=== PATIENT | male | born 1940 | race Hispanic/Latino ===

== ENCOUNTER 2017-10-04 00:17 | Inpatient (IN) | payer MEDICARE, OTHER ==
[~2017-10-04] VITALS: Ht 175.3 cm; Wt 88.9 kg
[2017-10-04] VITALS (7 sets, daily range): BP systolic 101–149; BP diastolic 52–72
[~2017-10-04 00:17] MED LIST: ALBUTEROL0.63 MG/3 INH; ASPIR 8181 MG PO; BACTRIM DS TAB1 EACH PO; CLOPIDOGREL75 MG PO; CRESTOR10 MG PO; ISOSORBIDE DINI20 MG PO; LEVEMIR100 UNIT/1 SQ; LISINOPRIL2.5 MG PO; LOPERAMIDE2 MG PO; METFORMIN HCL500 MG PO; METOPROLOL TART25 MG PO; MUCINEX DM ER1 EACH PO; NOVOLOG MI100 UNIT/1 SQ
[2017-10-04 01:15] LABS: BASOPHILS % 0.3 % (0.0-1.0); EOSINOPHILS # (AUTO) 0.1 (0.0-0.4); EOSINOPHILS % 0.7 % (0.0-6.0); HEMOGLOBIN 10.4 g/dL (14.0-18.0); LYMPHOCYTES # (AUTO) 0.9 (1.0-3.2); LYMPHOCYTES % 8.1 % (18.0-39.1); MEAN CORPUSCULAR HEMOGLOBIN 30.4 pg (28-32); MEAN CORPUSCULAR HGB CONC 34.7 g/dL (31-35); MEAN CORPUSCULAR VOLUME 87.7 fL (81-99); MONOCYTES # (AUTO) 0.7 (0.2-0.8); MONOCYTES % 6.3 % (4.4-11.3); NEUTROPHILS # (AUTO) 8.7 (2.1-6.9); NEUTROPHILS % 83.7 % (38.7-80.0); PLATELET COUNT 141 x10e3/uL (140-360); RED BLOOD COUNT 3.42 x10e6/uL (4.3-5.7); RED CELL DISTRIBUTION WIDTH 13.2 % (11.7-14.4)
[2017-10-04 01:19] LABS: INR 1.09; PROTHROMBIN TIME 13.3 seconds (11.9-14.5)
[2017-10-04 01:20] LABS: PARTIAL THROMBOPLASTIN TIME 36.5 seconds (23.8-35.5)
[2017-10-04] MEDS ORDERED: MORPHINE SULFATE 2 MG/ML SYR IV STA (01:22)
[2017-10-04] MEDS ORDERED: ONDANSETRON HCL INJ 2 MG/ML VIAL IV STA (01:22)
[2017-10-04 01:29] LABS: ALBUMIN 2.6 g/dL (3.5-5.0); ALBUMIN/GLOBULIN RATIO 0.6 (0.8-2.0); CALCIUM 8.7 mg/dL (8.4-10.2); CREATININE, SERUM 2.54 mg/dL (0.72-1.25)
[2017-10-04] MEDS ORDERED: ASPIRIN 81 MG CHEW TAB PO ONE (01:30)
[2017-10-04 01:36] LABS: CREATINE KINASE MB 3.4 ng/mL (0-5.0)
[2017-10-04 01:40] LABS: B-TYPE NATRIURETIC PEPTIDE2 408.7 pg/mL (0-100)
[2017-10-04 01:57] LABS: ANION GAP 16.3 mmol/L (8-16); MAGNESIUM 1.7 MG/DL (1.3-2.1); POTASSIUM 4.3 mmol/L (3.5-5.1)
--- NOTE | 2017-10-04 02:02 | Diagnostic Imaging Report ---
EXAM: CHEST 2 VIEWS, PA and lateral INDICATION: Chest pain, cough COMPARISON: PA and lateral view of the chest and 11/17/2016 FINDINGS: LINES/TUBES: None LUNGS: New patchy opacities bilaterally predominantly in the lung bases. PLEURA: No effusions or pneumothorax. HEART AND MEDIASTINUM: Stable appearance. Stable median sternotomy wires. BONES AND SOFT TISSUES: No acute findings. IMPRESSION: New, predominantly bibasilar airspace opacities. The differential includes pulmonary edema or multifocal pneumonia. Signed by: Dr. Maricel Marcelino M.D. on 10/04/2017 1:59 AM
[2017-10-04 02:14] LABS: BILIRUBIN,URINE NEGATIVE (NEGATIVE); CLARITY,URINE CLEAR (CLEAR); COLOR,URINE YELLOW (YELLOW); KETONES,URINE NEGATIVE (NEGATIVE); LEUKOCYTE ESTERASE ,URINE NEGATIVE (NEGATIVE); NITRITE,URINE NEGATIVE (NEGATIVE); URINE UROBILINOGEN 0.2 mg/dL (0.2 - 1)
[2017-10-04] MEDS ORDERED: IPRATROPIUM BROMIDE 0.02% 2.5 ML NEB NEB ONE (02:15)
[2017-10-04] MEDS ORDERED: LEVALBUTEROL HCL SOLN NEBU 0.63 MG/3 ML NEB INH ONE (02:15)
[2017-10-04 02:16] LABS: PROTEIN,URINE DIPSTICK 2+ (NEGATIVE)
[2017-10-04 02:21] LABS: BACTERIA,URINE RARE /HPF
[2017-10-04 02:22] LABS: EPITHELIAL CELLS,URINE RARE /LPF; HYALINE CASTS 0-1 (0-1)
[2017-10-04] MEDS ORDERED: ISOSORBIDE MONO20 MG PO (02:44)
[2017-10-04] MEDS ORDERED: NOVOLOG MI100 UNIT/1 SQ (02:44)
[2017-10-04] MEDS ORDERED: CARVEDILOL12.5 MG PO (02:44)
[2017-10-04] MEDS ORDERED: LEVEMIR100 UNIT/1 SQ (02:44)
[2017-10-04] MEDS ORDERED: LASIX20 MG PO (02:44)
[2017-10-04] MEDS ORDERED: FUROSEMIDE INJ 10 MG/ML 4 ML VIAL IV ONE (02:45)
[2017-10-04] MEDS ORDERED: INSULIN REGULAR, HUMAN 100 UNIT/1 ML 3ML VIAL SQ ONE (02:45)
[2017-10-04] MEDS ORDERED: CEFTRIAXONE SOD 1 GM VIAL IV SCH (03:00)
[2017-10-04 03:11] LABS: ABG HCO3 23 mmol/L (23-28); ABG PCO2 38 mmHg (41-51); ABG PO2 62 mmHg (80-105)
[2017-10-04] MEDS: AZITHROMYCIN 500MG/NS 250 ML 250 ML IV SCH ×2 (03:20→09:10)
[2017-10-04] MEDS ORDERED: MORPHINE SULFATE 2 MG/ML SYR IV PRN (03:45)
[2017-10-04] MEDS ORDERED: DEXTROSE 50% SYRINGE 50 ML IV PRN (03:45)
[2017-10-04] MEDS ORDERED: NITROGLYCERIN 0.4 MG SUBL SL PRN (03:45)
[2017-10-04] MEDS ORDERED: ONDANSETRON HCL INJ 2 MG/ML VIAL IV PRN ×2 (03:45→12:00)
--- OUTSIDE RECORDS SUMMARY | 2017-10-04 03:53 | XMS REPORT ---
Author Author [facility] Address Unknown Phone Unavailable Care Team Providers Care Engineering Production Liaison Name Role Phone HOLLAND VILLEGAS Unavailable Unavailable Problems This patient has no known problems. Allergies, Adverse Reactions, Alerts This patient has no known allergies or adverse reactions. Medications This patient has no known medications. Results Test Description Test Time Test Comments Text Results Atomic Results Result Comments CHEST [address] [address] Patient Name: EDDIE CERVANTES JR MR #: [id number] : 1940 Age/Sex: 77/M Req # : [id number] Adm Physician: Ordered by: HOLLAND VILLEGAS MD Report #: [id number] Location: ER Room/Bed: Procedure: [id number] DX/CHEST 2 VIEWS Exam Date: 10/04/17 Exam Time: 0135 REPORT STATUS: Signed EXAM: CHEST 2 VIEWS, PA and lateral INDICATION: Chest pain, cough COMPARISON: PA and lateral view of the chest and 11/17/2016 FINDINGS: LINES/TUBES: None LUNGS: New patchy opacities bilaterally predominantly in the lung bases. PLEURA: No effusions or pneumothorax. HEART AND MEDIASTINUM: Stable appearance. Stable median sternotomy wires. BONES AND SOFT TISSUES: No acute findings. IMPRESSION: New, predominantly bibasilar airspace opacities. The differential includes pulmonary edema or multifocal pneumonia. Signed by: Dr. Mel Elizalde M.D. on 10/04/2017 1:59 AM Dictated By: MEL ELIZALDE MD 8 Transcribed By: MARYANNE on 10/04/17158 COPY TO: HOLLAND VILLEGAS MD
[2017-10-04] MEDS ORDERED: IPRATROPIUM BROMIDE 0.02% 2.5 ML NEB NEB PRN (06:00)
[2017-10-04] MEDS ORDERED: LEVALBUTEROL HCL SOLN NEBU 0.63 MG/3 ML NEB INH PRN (06:00)
[2017-10-04] MEDS ORDERED: FAMOTIDINE 20 MG/2 ML VIAL IV SCH (09:00)
[2017-10-04] MEDS: ASPIRIN 325 MG TAB EC PO SCH (09:10)
[2017-10-04] MEDS: INSULIN REGULAR, HUMAN 100 UNIT/1 ML 3ML VIAL SQ SCH ×4 (09:10→20:40)
[2017-10-04 10:40] LABS: CREATINE KINASE MB 28.9 ng/mL (0-5.0)
[2017-10-04] MEDS: METOPROLOL TARTRATE 25 MG TAB PO SCH ×2 (11:43→17:00)
[2017-10-04] MEDS: INSULIN DETEMIR 100 UNIT/ML PEN SQ SCH (12:10)
[2017-10-04] MEDS ORDERED: HEPARIN 25,000U/0.45% NS 250ML 900 UNIT in SODIUM CHLORIDE 0.9% 250ML 0 ML IV SCH (13:45)
[2017-10-04] MEDS ORDERED: HEPARIN SOD (PORCINE) 5,000 UNIT/ML VIAL IV NR (13:45)
[2017-10-04] MEDS: HEPARIN 25,000U/0.45% NS 250ML 250 ML IV SCH (16:24)
[2017-10-04 18:27] LABS: CREATINE KINASE MB 25.8 ng/mL (0-5.0)
--- NOTE | 2017-10-04 18:28 | Consultation ---
DATE OF CONSULTATION: October 04, 2017 CARDIOLOGY CONSULTATION REFERRING PHYSICIAN: Dr. Janina Tran. REASON FOR CONSULTATION: Myocardial infarction. HISTORY OF PRESENT ILLNESS: Mr. Ortiz is a pleasant 77-year-old man with history of diabetes mellitus, single kidney, hypertension, hyperlipidemia, CKD, and coronary artery disease with prior aortocoronary bypass 11 years ago who presents to [facility] following 3 days with runny nose, cough, myalgias, and fatigue followed by sudden onset chest pressure while going to sleep last night. Pressure felt like somebody was sitting on his chest. It was constant and lasted a couple of hours. No radiation. No associated complaints. Currently symptom free. He described recent coronary angiogram done at the [place]. At that time, he was told he had small vessel residual disease, which was best managed medically. He states that at that time, he was told that he had issues with this residual kidney function and risk of contrast-associated nephropathy was elevated. REVIEW OF SYSTEMS: The 12-system review, negative except for as noted above. ALLERGIES: STATINS, NIACIN, SIMVASTATIN, AND ATORVASTATIN. PAST MEDICAL HISTORY: As per HPI. SOCIAL HISTORY: Former smoker, quit in 1964. Rare alcohol use. No drug use. FAMILY HISTORY: Significant for diabetes and hypertension. PHYSICAL EXAMINATION VITAL SIGNS: Temperature 99.9, heart rate 72, respiratory rate 18, blood pressure 150/55, and O2 sat 100% on 2 liter per minute nasal cannula. GENERAL: No acute distress. Alert. NECK: JVD elevated to lower 3rd of neck at 30 degrees head of bed elevation. CHEST: Decreased breath sounds in bilateral bases. CARDIOVASCULAR: Regular rate and rhythm. Normal S1 and S2. Systolic ejection murmur 1/6. ABDOMEN: Soft and nontender. EXTREMITIES: No edema. Warm distal extremities. CARDIOVASCULAR MEDICATIONS: Metoprolol titrate 25 mg b.i.d., aspirin 325 mg daily, heparin 5000 units subcu q.12 hours, and nitroglycerin p.r.n. LAB WORK: White blood cells 10.4, hemoglobin 10.4, and platelets 141. INR 1.09. PTT 36.5. Initial glucose was 629, down now to 275. His sodium was 136, potassium 4.3, chloride 102, bicarbonate 22, BUN 33, creatinine 2.5, calcium 8.7, and magnesium 1.7. Total bilirubin 0.7, AST 17, ALT 16, and alk phos 109. CK 170, then 324; CK-MB 3.4, then 28.9; troponin-I 0.034, then 9.8. BNP is 408. Total protein 7 and albumin 2.6. UA is significant for specific gravity 1.010, pH 6, blood 3+, rbc's 6 to 10, white blood cells 11 to 20, and rare bacteria. Blood cultures sent. Chest x-ray with new predominantly bibasilar airspace opacities; differential including pulmonary edema and multifocal pneumonia; stable appearance of heart and mediastinum with stable median sternotomy wires. EKG with sinus rhythm and bifascicular block, mainly left ventricular and right bundle branch block. ASSESSMENT 1. Non-ST elevated myocardial infarction. 2. Coronary artery disease with history of aortocoronary bypass, remote and recent cardiac catheterization at the [place]. 3. Diabetes mellitus. 4. Hyperlipidemia. 5. Labile blood pressure with some reads in the high 80s, systolic in the 150s. 6. Anemia. 7. Renal failure, chronic, with possible acute component. 8. Uncontrolled hyperglycemia. 9. Systolic heart failure, yjqzg-kk-mhpaire. 10. Abnormal urinalysis concerning for urinary tract infection. 11. Differential diagnosis includes pulmonary edema and less likely pneumonia given upper respiratory symptoms. Proceeding in my presentation, differential of pneumonia is consideration. RECOMMENDATIONS 1. Initiate IV heparin. 2. Continue aspirin , beta hal with holding parameters, calculating his risk of contrast-induced nephropathy based on risk calculator by Dr. Giordano, Journal of the [place] [employer] 2004. Assuming blood pressure remains stable and there is no acute component of renal failure, contrast-induced nephropathy risk using less than 100 mL of dye will be 26% and between 100 mL and 200 mL of dye will be 57%. Risk of dialysis would range from less than 100 mL of dye at 1.09% and using between 100 mL and 200 mL will increase to 12.6%. Discussion about risk of contrast-induced nephropathy initiated as well as cardiac catheterization and possible angiography intervention. Discussed with the patient. We will continue initial medical therapy and decide over course of the next several days whether to pursue an invasive strategy or conservative medical therapy strategy instead. 3. Monitor renal function, request recent records, particularly cardiac catheterization done at the [place]. Suggest renal consultation and diabetes optimization. We will clarify further statin intolerance, can consider PCSK9 inhibitor as outpatient once highest potency statin tolerated confirmed. Job#: [id number] VAS
[2017-10-04] MEDS ORDERED: HEPARIN SOD (PORCINE) 5,000 UNIT/ML VIAL SC SCH (21:00)
[2017-10-05] VITALS (7 sets, daily range): BP systolic 121–157; BP diastolic 42–72
[2017-10-05 06:45] LABS: BASOPHILS # (AUTO) 0.1 (0.0-0.1); BASOPHILS % 0.5 % (0.0-1.0); EOSINOPHILS # (AUTO) 0.2 (0.0-0.4); EOSINOPHILS % 1.5 % (0.0-6.0); HEMATOCRIT 30.4 % (38.2-49.6); HEMOGLOBIN 10.2 g/dL (14.0-18.0); LYMPHOCYTES # (AUTO) 1.8 (1.0-3.2); LYMPHOCYTES % 15.3 % (18.0-39.1); MEAN CORPUSCULAR HEMOGLOBIN 29.9 pg (28-32); MEAN CORPUSCULAR HGB CONC 33.6 g/dL (31-35); MEAN CORPUSCULAR VOLUME 89.1 fL (81-99); MONOCYTES # (AUTO) 0.6 (0.2-0.8); MONOCYTES % 4.7 % (4.4-11.3); NEUTROPHILS % 77.1 % (38.7-80.0); PLATELET COUNT 148 x10e3/uL (140-360); RED BLOOD COUNT 3.41 x10e6/uL (4.3-5.7); RED CELL DISTRIBUTION WIDTH 13.2 % (11.7-14.4)
--- NOTE | 2017-10-05 06:54 | Diagnostic Imaging Report ---
EXAM: CHEST SINGLE (PORTABLE), AP 1 view INDICATION: Chest pain COMPARISON: PA and lateral view of the chest October 04, 2017 FINDINGS: LINES/TUBES: None LUNGS: Slight improved aeration of the lung bases. PLEURA: No effusions or pneumothorax. HEART AND MEDIASTINUM: Stable appearance. BONES AND SOFT TISSUES: No acute findings. IMPRESSION: Slight improved aeration of the lung bases. Signed by: Dr. Maricel Marcelino M.D. on 10/05/2017 6:50 AM
[2017-10-05 07:14] LABS: ALBUMIN 2.4 g/dL (3.5-5.0); ALBUMIN/GLOBULIN RATIO 0.5 (0.8-2.0); ANION GAP 11.3 mmol/L (8-16); CALCIUM 8.9 mg/dL (8.4-10.2); CHOL/HDL RATIO 3.6 (3.9-4.7); CREATININE, SERUM 2.3 mg/dL (0.72-1.25); POTASSIUM 3.3 mmol/L (3.5-5.1)
[2017-10-05] MEDS: INSULIN REGULAR, HUMAN 100 UNIT/1 ML 3ML VIAL SQ SCH ×4 (07:36→21:00)
[2017-10-05] MEDS: INSULIN DETEMIR 100 UNIT/ML PEN SQ SCH (08:01)
[2017-10-05] MEDS: ASPIRIN 325 MG TAB EC PO SCH (08:09)
[2017-10-05] MEDS: METOPROLOL TARTRATE 25 MG TAB PO SCH ×2 (08:10→16:58)
[2017-10-05] MEDS ORDERED: POTASSIUM CHLORIDE 10 MEQ TABCR PO ONE (08:50)
--- NOTE | 2017-10-05 11:25 | Progress Note ---
DATE: October 05, 2017 CARDIOLOGY PROGRESS NOTE SUBJECTIVE: Patient denies chest pain or shortness of breath. OBJECTIVE: VITAL SIGNS: Temperature 99.8 degrees, pulse 76, respiratory rate 20, blood pressure 157/72, oxygen saturation 100% on 2 liters nasal cannula. GENERAL: Well-developed, well-nourished male, awake and alert, in no acute distress. LUNGS: Decreased breath sounds bilateral bases. No wheezes or crackles. CARDIOVASCULAR: Normal rate, regular rhythm. Systolic murmur 1/6. Normal S1 and S2. ABDOMEN: Soft and nontender. EXTREMITIES: No edema. CARDIAC MEDICATIONS 1. Metoprolol titrate 25 mg p.o. b.i.d. 2. Aspirin 325 mg p.o. q.a.m. 3. Heparin drip. LABS: Sodium 131, potassium 3.3, chloride 98, CO2 of 25, BUN 34, creatinine 2.3. Troponin 13.159. WBC 11.64, hemoglobin 10.2, hematocrit 30.4, platelets 148. TELEMETRY: Normal sinus rhythm. IMPRESSION 1. Non-ST elevation myocardial infarction. 2. Bibasilar airspace opacities on chest x-ray. 3. Coronary artery disease with history of coronary artery bypass grafting remote with recent cardiac catheterization at the [place] in July 2017. 4. Diabetes mellitus. 5. Hyperlipidemia. 6. Hypertension. 7. Chronic renal failure with possible component of acute kidney injury. 8. Anemia. 9. Vltvv-an-jiuaocn systolic heart failure. 10. Abnormal urinalysis concerning for urinary tract infection. RECOMMENDATIONS 1. Continue medical management with intravenous heparin drip. 2. Continue aspirin as well as beta-hal. Patient has reported history of statin intolerance. We will clarify his side effects. If he is unable to tolerate, he can consider PCSK9 inhibitor injection as an outpatient. We are awaiting recent cardiac catheterization report from the [place]. Renal consultation is noted. Await their evaluation regarding his risk of contrast-induced nephropathy. Continue medical therapy for now. Hold off diuretics as patient may possibly go for cardiac catheterization. Continue current cardiac medications. Thank you for this consult. We will continue to follow. Job#: [id number] YOBANI
[2017-10-05] MEDS: HEPARIN 25,000U/0.45% NS 250ML 250 ML IV SCH (13:44)
[2017-10-05] MEDS ORDERED: BENZONATATE 100 MG CAP PO PRN (14:00)
--- NOTE | 2017-10-05 15:49 | Consultation ---
DATE OF CONSULTATION: October 05, 2017 NEPHROLOGY CONSULT NOTE REASON FOR CONSULTATION: CKD with single kidney. REASON FOR ADMISSION: NSTEMI, flu-like symptoms. HISTORY OF PRESENTING ILLNESS: Mr. Ortiz is a 77-year-old male with a past medical history significant for CAD, status post bypass surgery, hypertension, diabetes, hyperlipidemia, and chronic kidney disease likely stage 4. 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 He states he feels better today; however, on admission, it was noted that his troponin was 13 and his creatinine was 2.5. Cardiology has been consulted and requested a nephrology consultation as his risk of contrast-induced nephropathy is high. Patient is aware of contrast-induced nephropathy. He underwent a left heart cath in September, where he was told his vessels were not amenable to stenting and was told he does have medical coronary artery disease and was just started on medical management for the same. He states his heart function is 35%. He does have a history of heart failure and takes Lasix 20 mg a day. He states his kidney function started deteriorating about 2 years ago, but according to chart review here, we have creatinine available from August of 2016, which is 2.25, which is likely his baseline. Yesterday, his creatinine was 2.5 and today, it is corrected to 2.18, which is likely around his baseline as well. We have been consulted to assist with management of possible contrast-induced nephropathy and CKD. Patient at this time states he denies any complaints, feels better. Denies any shortness of breath, is on oxygen currently, but does not have any significant reduction in his physical activity at home. He is already aware of contrast-induced nephropathy. He has had a right nephrectomy, unsure as to the exact cause. He states he had trauma and then was told he had a cyst and there was concern for cancer and it was taken out. 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 PAST SURGICAL HISTORY: CABG and right nephrectomy. FAMILY HISTORY: Noncontributory. SOCIAL HISTORY: He was a former smoker. No alcohol or drug use. ALLERGIES: STATINS AND NIACIN. MEDICATIONS: Reviewed in electronic medical record. REVIEW OF SYSTEMS: A 12-point review of systems performed, pertinent positives as per HPI. PHYSICAL EXAMINATION VITAL SIGNS: Temperature 97.8, pulse rate 74, blood pressure 117/60, respiratory rate 20, and saturating 96%. GENERAL: Resting comfortably in bed with nasal cannula. HEENT: Normocephalic, atraumatic. Moist mucous membranes. CARDIOVASCULAR: Regular rate and rhythm. RESPIRATORY: Has decreased bilateral breath sounds. No crackles appreciated. GASTROINTESTINAL: Abdomen soft and nontender. MUSCULOSKELETAL: Has no lower extremity edema. GENITOURINARY: No Chao present. NEUROLOGICAL: No asterixis appreciated. LABORATORY DATA: Sodium 131, potassium 3.3, chloride 98, bicarbonate 25, BUN 34, creatinine 2.3. WBC count 11.6, hemoglobin 10.2, and platelet count 148. UA with 2+ protein, 3+ blood, 11-20 wbc's. Influenza A and B negative. Cultures blood and urine, no growth to date. IMAGING: Reviewed. Chest x-ray, slight improved aeration of the lung bases. Chest x-ray from yesterday showed predominantly bibasilar airspace opacities. IMPRESSION AND PLAN 1. Acute kidney injury likely on top of chronic kidney disease stage 4 with a solitary left kidney. At this time, patient is very high risk for contrast-induced nephropathy given solitary kidney despite contrast-induced nephropathy risk calculator showing that if less than 100 mL of contrast is used, he is at risk of 1% of needing dialysis and 26% of contrast-induced nephropathy, but if more than that is used, his risk factors increase exponentially and his risk of needing dialysis goes up to 12% and his risk of ending up with contrast-induced nephropathy is about 57%. Discussed the same with patient and discussed dialysis needs as well if needed. Patient understands the risks at this time; however, we are waiting for records from [place] to see if the patient really does need a coronary angiogram as he was told in September that his veins are not amenable to stenting. We will defer decision medical necessity of cardiac catheterization to cardiology. If it is decided that he needs a cardiac catheterization, we will recommend holding off diuresis at this time and keep patient relatively volume-expanded, may even need gentle fluids pre- and postprocedure and Mucomyst as well. Depending on decision per cardiology, we will place those orders. 2. Hypertension. Blood pressure controlled. Continue with current meds. 3. Non-ST segment myocardial infarction, as per cardiology. 4. Diabetes, per primary care. 5. Hyponatremia and hypokalemia. We will replace potassium. Monitor his sodium. Finally, thank you very much Dr. Tran for this consult. I will be very happy to follow this patient with you. Job#: [id number] DOMENIC HARRINGTON
[2017-10-05] MEDS: ACETAMINOPHEN 325 MG TAB PO PRN (22:52)
[2017-10-06] VITALS (7 sets, daily range): BP systolic 134–156; BP diastolic 57–78
[2017-10-06 06:48] LABS: BASOPHILS # (AUTO) 0.1 (0.0-0.1); BASOPHILS % 0.5 % (0.0-1.0); EOSINOPHILS # (AUTO) 0.2 (0.0-0.4); EOSINOPHILS % 1.8 % (0.0-6.0); HEMATOCRIT 26.9 % (38.2-49.6); HEMOGLOBIN 9.2 g/dL (14.0-18.0); LYMPHOCYTES # (AUTO) 1.9 (1.0-3.2); MEAN CORPUSCULAR HEMOGLOBIN 30.2 pg (28-32); MEAN CORPUSCULAR HGB CONC 34.2 g/dL (31-35); MEAN CORPUSCULAR VOLUME 88.2 fL (81-99); MONOCYTES # (AUTO) 0.7 (0.2-0.8); MONOCYTES % 6.7 % (4.4-11.3); PLATELET COUNT 146 x10e3/uL (140-360); RED BLOOD COUNT 3.05 x10e6/uL (4.3-5.7); RED CELL DISTRIBUTION WIDTH 13.2 % (11.7-14.4)
[2017-10-06 07:15] LABS: ANION GAP 12.9 mmol/L (8-16); CALCIUM 8.6 mg/dL (8.4-10.2); CREATININE, SERUM 2.25 mg/dL (0.72-1.25); MAGNESIUM 1.6 MG/DL (1.3-2.1); POTASSIUM 3.9 mmol/L (3.5-5.1)
[2017-10-06] MEDS: INSULIN REGULAR, HUMAN 100 UNIT/1 ML 3ML VIAL SQ SCH ×4 (07:30→20:13)
[2017-10-06] MEDS: ACETAMINOPHEN 325 MG TAB PO PRN (09:00)
[2017-10-06] MEDS: ASPIRIN 325 MG TAB EC PO SCH (09:16)
[2017-10-06] MEDS: METOPROLOL TARTRATE 25 MG TAB PO SCH ×2 (09:16→18:00)
[2017-10-06] MEDS: INSULIN DETEMIR 100 UNIT/ML PEN SQ SCH (09:21)
[2017-10-06] MEDS: CEFTRIAXONE SOD 1 GM VIAL IV SCH (12:15)
[2017-10-06] MEDS: AZITHROMYCIN 250 MG TAB PO SCH (12:15)
[2017-10-06] MEDS: HEPARIN 25,000U/0.45% NS 250ML 250 ML IV SCH (15:30)
--- NOTE | 2017-10-06 16:47 | Progress Note ---
DATE: October 06, 2017 CARDIOLOGY PROGRESS NOTE SUBJECTIVE: Patient denies chest pain or shortness of breath. He is complaining of cough. OBJECTIVE VITAL SIGNS: Temperature 100.2 degrees, pulse 78, respiratory rate 17, blood pressure 156/68, oxygen saturation 100% on 1.5 L nasal cannula. GENERAL: Awake, alert, in no acute distress. LUNGS: Decreased breath sounds at bilateral bases. No wheezes or crackles. CARDIOVASCULAR: Normal rate, regular rhythm. Systolic murmur, 1/6. Normal S1 and S2. ABDOMEN: Soft and nontender. EXTREMITIES: No edema. CARDIAC MEDICATIONS 1. Metoprolol titrate 25 mg p.o. b.i.d. 2. Aspirin 325 mg p.o. q.a.m. LABS: WBC 10.9, hemoglobin 9.2, hematocrit 26.9, platelets 146. Sodium 140, potassium 3.9, chloride 106, CO2 25, BUN 35, creatinine 2.25. TELEMETRY: Normal sinus rhythm. IMPRESSION 1. Yzr-XY-myeizhtqz myocardial infarction. 2. Bibasilar airspace opacities on chest x-ray. 3. Coronary artery disease with history of coronary artery bypass grafting remote with recent cardiac catheterization at the [place] in July 2017. 4. Diabetes mellitus. 5. Hyperlipidemia. 6. Hypertension. 7. Chronic renal failure with possible component of acute kidney injury. 8. Anemia. 9. Mkutq-tn-ffbfqpj systolic heart failure. 10. Abnormal urinalysis concerning for urinary tract infection. RECOMMENDATIONS 1. Continue medical management including intravenous heparin drip. 2. Continue aspirin and beta blockade. He has had a reported history of statin intolerance. If he is unable to tolerate, he can consider PCSK9 inhibitor initiation as an outpatient. We have requested the cardiac catheterization report from the [place]. However, we have not been successful. Plan for cardiac catheterization tomorrow. Nephrology indicates the patient is at high risk for contrast-induced nephropathy. The patient understands this risk and understands his risk of dialysis and is agreeable to proceeding. No diuretics for now as we plan to proceed to cardiac catheterization. Thank you for this consult. We will continue to follow. Job#: [id number]
[2017-10-06] MEDS: ACETYLCYSTEINE 200 MG/1 ML 10ML VIAL PO SCH (18:00)
[2017-10-07 04:07] VITALS: BP 132/69
[2017-10-07 06:19] LABS: BASOPHILS % 0.5 % (0.0-1.0); EOSINOPHILS # (AUTO) 0.2 (0.0-0.4); EOSINOPHILS % 2.4 % (0.0-6.0); HEMATOCRIT 26.7 % (38.2-49.6); HEMOGLOBIN 8.9 g/dL (14.0-18.0); LYMPHOCYTES # (AUTO) 1.9 (1.0-3.2); LYMPHOCYTES % 22.7 % (18.0-39.1); MEAN CORPUSCULAR HEMOGLOBIN 29.5 pg (28-32); MEAN CORPUSCULAR HGB CONC 33.3 g/dL (31-35); MEAN CORPUSCULAR VOLUME 88.4 fL (81-99); MONOCYTES # (AUTO) 0.6 (0.2-0.8); MONOCYTES % 7.3 % (4.4-11.3); NEUTROPHILS # (AUTO) 5.6 (2.1-6.9); NEUTROPHILS % 66.3 % (38.7-80.0); PLATELET COUNT 155 x10e3/uL (140-360); RED BLOOD COUNT 3.02 x10e6/uL (4.3-5.7); RED CELL DISTRIBUTION WIDTH 13.1 % (11.7-14.4)
[2017-10-07 06:39] LABS: CALCIUM 8.8 mg/dL (8.4-10.2); CREATININE, SERUM 2.14 mg/dL (0.72-1.25); MAGNESIUM 1.8 MG/DL (1.3-2.1); PHOSPHORUS 2.7 MG/DL (2.3-4.7)
[2017-10-07] MEDS: INSULIN REGULAR, HUMAN 100 UNIT/1 ML 3ML VIAL SQ SCH ×4 (07:30→21:09)
[2017-10-07 08:05] VITALS: BP 140/72
[2017-10-07] MEDS: ACETYLCYSTEINE 200 MG/1 ML 10ML VIAL PO SCH ×3 (09:00→19:11)
[2017-10-07] MEDS: METOPROLOL TARTRATE 25 MG TAB PO SCH ×3 (09:00→19:20)
[2017-10-07] MEDS: INSULIN DETEMIR 100 UNIT/ML PEN SQ SCH (09:00)
--- NOTE | 2017-10-07 09:24 | Progress Note ---
DATE: October 07, 2017 CARDIOLOGY PROGRESS NOTE SUBJECTIVE: Patient denies chest pain or shortness of breath. He is n.p.o. for cardiac catheterization today. OBJECTIVE VITAL SIGNS: Temperature 99.5 degrees, pulse 74, respiratory rate 20, blood pressure 132/69, oxygen saturation 98% on room air. GENERAL: Awake, alert, in no acute distress. LUNGS: Decreased breath sounds at bilateral bases and crackles, no wheezes. CARDIOVASCULAR: Normal rate, regular rhythm. Systolic murmur, 1/6. Normal S1 and S2. ABDOMEN: Soft and nontender. EXTREMITIES: No edema. CARDIAC MEDICATIONS 1. Metoprolol titrate 25 mg p.o. b.i.d. 2. Aspirin 325 mg p.o. q.a.m. 3. Heparin drip. LABS: WBC 8.4, hemoglobin 8.9, hematocrit 26.7, platelets 155. Sodium 138, potassium 4, chloride 105, CO2 24, BUN 33, creatinine 2.14. TELEMETRY: Normal sinus rhythm. IMPRESSION 1. Mhd-ZG-nzsvddgvs myocardial infarction. 2. Bibasilar airspace opacities on chest x-ray. 3. Coronary artery disease with history of coronary artery bypass grafting remote with recent cardiac catheterization at the [place] in July 2017. 4. Diabetes mellitus. 5. Hyperlipidemia. 6. Hypertension. 7. Chronic renal failure with component of acute kidney injury. 8. Anemia. 9. Yuhak-rn-xxbzyug systolic heart failure. 10. Abnormal urinalysis concerning for urinary tract infection. RECOMMENDATIONS 1. Continue medical management including intravenous heparin drip. 2. Continue aspirin and beta hal. The patient has reported a history of statin intolerance. If he is unable to tolerate any significant doses of statin, he can consider PCSK9 inhibitor as an outpatient. We have requested report of the patient's recent cardiac catheterization from the [place]. However, this has still not arrived. Plan for cardiac catheterization this afternoon. Patient understands that he is at increased risk for contrast-induced nephropathy, and he is agreeable to proceed. Hold any diuretics as plan for contrast administration. Continue current cardiac medications otherwise. Thank you for this consult. We will continue to follow. Job#: [id number]
[2017-10-07] MEDS: CEFTRIAXONE SOD 1 GM VIAL IV SCH (12:14)
[2017-10-07 12:33] VITALS: BP 151/70
[2017-10-07] MEDS ORDERED: SODIUM CHLORIDE 0.9% 1000ML 1,000 ML IV ONE (14:00)
[2017-10-07] MEDS ORDERED: HEPARIN SOD (PORCINE) 1000 UNIT/ML 30ML ONE (16:21)
[2017-10-07] MEDS ORDERED: MIDAZOLAM HCL 2 MG/2 ML VIAL ONE (16:22)
[2017-10-07] MEDS ORDERED: HEPARIN SOD/SOD CHLORIDE 2,000 ML ONE (16:22)
[2017-10-07] MEDS ORDERED: VERAPAMIL HCL 2.5 MG/ML 2 ML VIAL ONE (16:22)
[2017-10-07] MEDS ORDERED: LIDOCAINE HCL 2% LOCAL 20 ML VIAL ONE ×2 (16:22→16:27)
[2017-10-07] MEDS ORDERED: FENTANYL CITRATE/PF 100MCG/2 ML INJ ONE (16:22)
[2017-10-07] MEDS ORDERED: SODIUM CHLORIDE 0.9% 1000ML 1,000 ML ONE (16:23)
[2017-10-07] MEDS ORDERED: IOPAMIDOL 370 MG/ML 200 ML INFUS..BTL INJ ONE (16:23)
[2017-10-07] MEDS ORDERED: NITROGLYCERIN/D5W 200 MCG/ML 0 ML ONE (16:23)
[2017-10-07 18:15] VITALS: BP 174/72
[2017-10-07] MEDS: AZITHROMYCIN 250 MG TAB PO SCH (19:04)
[2017-10-07] MEDS: ASPIRIN 325 MG TAB EC PO SCH (19:04)
--- NOTE | 2017-10-07 20:16 | Operative Report ---
DATE OF PROCEDURE: October 07, 2017 PROCEDURE INDICATION: Non-ST elevation myocardial infarction in a patient with history of coronary artery disease and remote aortocoronary bypass and prior stents. Advanced kidney disease, high risk for contrast-induced nephropathy. Of note, indications, alternatives, risks and benefits extensively discussed with the patient including medical conservative therapy with no invasive assessment versus invasive assessment. Risks for contrast-induced nephropathy, needs for dialysis, worsening kidney function, increased mortality and morbidity and other risks were discussed. The patient voiced understanding and agreed to proceed with study. This is limited dye-protocol angiogram. PROCEDURES PERFORMED 1. Left heart catheterization. 2. Selective coronary angiography x2. 3. Selective CABELLO to LAD angiography. 4. Interrogation of aortic arch for additional patent grafts performed with a JR4 and AL1 and multipurpose catheter. 5. Right common femoral artery 6-Gu[place]ian Angio-Seal closure. PROCEDURE COMPLICATIONS: None. ESTIMATED BLOOD LOSS: Less than 15 mL. PROCEDURE SUMMARY: After consent was obtained, the patient was prepped and draped in a sterile fashion. The right femoral site was locally infiltrated with 2% lidocaine. Access was obtained with micropuncture kit. A short 6-Guamanian sheath was placed. All catheters were railed with leading wire to the respective positions. A 6-Guamanian JL4 was used for engagement of left main. A 6-[place]ian JR4 for engagement of right coronary artery in addition to multipurpose and an AL1 were used for additional interrogation of the ascending aorta for other grafts. No additional patent grafts were observed other than the CABELLO to LAD, which was patent and engaged with JR4 catheter. The aortic valve was for hemodynamic measurements with the JR4 with the following findings noted: 1. LV pressure was 127/2 with end-diastolic pressure of 11-12. 2. Aortic pressure was 125/70. 3. Left main had 20% diffuse stenosis. It is large in caliber. It gives LAD and circumflex. 4. LAD has moderate calcifications. It has bifurcation stent with 30% stenosis prior to giving the first diagonal. The first diagonal in the proximal osteal portion is stented with 50% in-stent restenosis. Distal to the stent there is diffuse 70% to 90% disease of a small caliber 1.5 to 1.75 mm diameter diagonal. Distal to the diagonal the LAD is 100% occluded. This is restenosis 100% occlusion. The LAD, however, fills the patent CABELLO to LAD. The distal LAD is severely, diffusely diseased 70% throughout. 5. The circumflex is patent with 50% mid stenosis in between the 1st and the 2nd obtuse marginal. Overall, obtuse marginal and left posterolateral branches are small in caliber. The 1st posterolateral branch has 99% stenosis. It is 1 mm in caliber and the 2nd posterolateral branch has 99% stenosis. It is small in caliber also, 1 mm, and with SHASTA II flow. 6. The right coronary artery is a dominant vessel. It has stents in the mid to distal portion. Prior to the stents, the RCA has 50% local stenosis. The stent itself has a 40% in-stent restenosis. Distal to the stent, there is 30% focal stenosis and 40% stenosis all in tandem. The RPDA and RPLV are overall small in caliber with areas of 95% and 99% stenosis throughout. Predominantly diffuse disease. 7. CABELLO to LAD is patent with no significant gradient across pullback in the subclavian artery. 8. No left ventriculogram was performed. CONCLUSION: Severe predominantly small caliber distal vessel and diffuse disease, multivessel, with patent CABELLO to left anterior descending, otherwise closed grafts 100% in-stent restenosis of left anterior descending following diagonal. Severe disease effecting diagonal, obtuse marginal and left posterior lateral branches and right posterior descending artery and right posterior left ventricular. Patent stents with moderate in-stent restenosis of the right coronary artery. RECOMMENDATIONS: No endovascular intervention is advised. This is outflow small caliber vessel, diffuse multivessel disease coronary arteries. Recommend reconsider challenging with alternative statins, which the patient has attempted before. Given his reported statin intolerance, further clarify what side effects he has had before with this, and if considered clinically indicated attempt re-challenging. Consider PCS canine inhibitor therapy. As outpatient, optimize antianginal medical therapy. Monitor for contrast-induced nephropathy. Overall, guarded prognosis. Job#: [id number]
[2017-10-07 22:44] VITALS: BP 156/69
[2017-10-08 00:05] VITALS: BP 139/66
[2017-10-08 05:40] VITALS: BP 139/66
[2017-10-08 07:10] LABS: BASOPHILS % 0.5 % (0.0-1.0); EOSINOPHILS # (AUTO) 0.2 (0.0-0.4); EOSINOPHILS % 2.5 % (0.0-6.0); HEMATOCRIT 31.7 % (38.2-49.6); HEMOGLOBIN 10.7 g/dL (14.0-18.0); LYMPHOCYTES # (AUTO) 1.3 (1.0-3.2); LYMPHOCYTES % 15.7 % (18.0-39.1); MEAN CORPUSCULAR HEMOGLOBIN 29.7 pg (28-32); MEAN CORPUSCULAR HGB CONC 33.8 g/dL (31-35); MEAN CORPUSCULAR VOLUME 88.1 fL (81-99); MONOCYTES # (AUTO) 0.6 (0.2-0.8); MONOCYTES % 7.4 % (4.4-11.3); NEUTROPHILS # (AUTO) 5.8 (2.1-6.9); PLATELET COUNT 178 x10e3/uL (140-360)
[2017-10-08 07:30] LABS: ANION GAP 11.9 mmol/L (8-16); CALCIUM 9.1 mg/dL (8.4-10.2); CREATININE, SERUM 1.86 mg/dL (0.72-1.25); MAGNESIUM 1.7 MG/DL (1.3-2.1); PHOSPHORUS 3.3 MG/DL (2.3-4.7); POTASSIUM 3.9 mmol/L (3.5-5.1)
[2017-10-08] MEDS: ASPIRIN 325 MG TAB EC PO SCH (08:06)
[2017-10-08] MEDS: INSULIN REGULAR, HUMAN 100 UNIT/1 ML 3ML VIAL SQ SCH ×2 (08:06→11:30)
[2017-10-08] MEDS: AZITHROMYCIN 250 MG TAB PO SCH (08:07)
[2017-10-08 08:10] VITALS: BP 144/62
[2017-10-08] MEDS: ACETYLCYSTEINE 200 MG/1 ML 10ML VIAL PO SCH (08:24)
[2017-10-08] MEDS: METOPROLOL TARTRATE 25 MG TAB PO SCH (08:25)
[2017-10-08] MEDS: INSULIN DETEMIR 100 UNIT/ML PEN SQ SCH (11:19)
[2017-10-08] MEDS: CEFTRIAXONE SOD 1 GM VIAL IV SCH (11:20)
[2017-10-08] MEDS ORDERED: AMLODIPINE BESYLATE 5 MG TAB PO SCH (11:30)
[2017-10-08 11:47] VITALS: BP 147/66
--- NOTE | 2017-10-08 12:35 | Progress Note ---
DATE: October 08, 2017 CARDIOLOGY PROGRESS NOTE SUBJECTIVE: Patient denies chest pain or shortness of breath. OBJECTIVE VITAL SIGNS: Temperature 98.1 degrees, pulse 68, respiratory rate 20, blood pressure 144/62, oxygen saturation 100% on room air. GENERAL: Awake, alert, in no acute distress. LUNGS: Clear to auscultation bilaterally. No wheezes or crackles. CARDIOVASCULAR: Normal rate, regular rhythm. Systolic murmur, 1/6. Normal S1 and S2. ABDOMEN: Soft and nontender. EXTREMITIES: No edema. CARDIAC MEDICATIONS 1. Metoprolol titrate 25 mg p.o. b.i.d. 2. Aspirin 325 mg p.o. q.a.m. 3. Furosemide 20 mg p.o. daily. 4. Amlodipine 5 mg p.o. daily. LABS: WBC 7.94, hemoglobin 10.7, hematocrit 31.7, platelets 178. Sodium 137, potassium 3.9, chloride 105, CO2 24, BUN 30, creatinine 1.86. TELEMETRY: Sinus bradycardia. IMPRESSION 1. Gls-ZN-hxadrynzi myocardial infarction. 2. Bibasilar airspace opacities on chest x-ray. 3. Coronary artery disease with history of coronary artery bypass grafting remote with recent cardiac catheterization at the [facility] in July 2017. 4. Diabetes mellitus. 5. Hypertension. 6. Hyperlipidemia. 7. Chronic renal failure with component of acute kidney injury. 8. Anemia. 9. Tkxpy-la-yslngvz systolic heart failure. 10. Abnormal urinalysis concerning for urinary tract infection. RECOMMENDATIONS: Cardiac catheterization revealed predominantly small-caliber distal vessel and diffuse multivessel disease with patent CABELLO to LAD. Otherwise, the grafts were closed. No intervention was advised. We will optimize medical therapy. He is actually on rosuvastatin. He denies any symptoms on Lipitor or rosuvastatin, and his LDL is 61. Given the patient's elevated blood pressure, we will add amlodipine. Otherwise, continue beta hal and aspirin. Thank you for this consult. We will continue to follow. Job#: [id number]
--- NOTE | 2017-10-08 14:54 | Discharge Summary ---
PRIMARY CARE DOCTOR: Dr. Pramod Kramer. FINAL DIAGNOSIS: Oed-BT-zyzgdeuro myocardial infarction. SECONDARY DIAGNOSIS 1. Presumed community-acquired pneumonia. 2. Stage 4 chronic kidney disease with solitary kidney. 3. Diabetes. 4. Chronic systolic congestive heart failure with ejection fraction of 35% to 40%. BRYN and ARB are contraindicated in the setting of elevated creatinine. CONSULTANTS 1. Dr. Marie, nephrology. 2. Dr. Garrett, cardiology. PROCEDURES/STUDIES PERFORMED 1. Left heart cath. 2. Echocardiogram. HISTORY: Per H\T\P. HOSPITAL COURSE: Patient was admitted. His troponin peaked at 13. Patient was treated with heparin drip. Patient was optimized volume-monsalve and underwent a left heart cath without a bump in his creatinine. Unfortunately, his vessels are very small and also with diffuse disease. No intervention was advised. We will optimize medical therapy. Patient will be going home on aspirin, metoprolol, Lasix and Norvasc along with Crestor. As far as his presumptive pneumonia, patient underwent a course of IV Rocephin and azithromycin. He will go home on doxycycline for another 3 days. CONDITION ON DISCHARGE: Stable. DISCHARGE MEDICATIONS: Please see medication reconciliation form. Patient was seen and examined today. It took 33 minutes total to discharge this patient. BRIANNA BARRIOS M.D. Job#: [id number] EV cc:PRAMOD KRAMER MD
[2017-10-08 15:18] VITALS: BP 159/75
[2017-10-08] MEDS ORDERED: CRESTOR 10MG PO SCH (21:00)
[2017-10-09] MEDS ORDERED: FUROSEMIDE 20 MG TAB PO SCH (09:00)
== END 2017-10-08 15:30 | disposition home or self-care (01) | DRG 280 ==
LOC: ER 00:17 → ERHOLD 03:50 → IMCU 13:19 → MED/SURG 10-05 10:58 → IMCU 10-05 10:59
PROVIDERS: ADMIT Internal Medicine; ATTEND Internal Medicine
PROC: 4A023N7 Measurement of Cardiac Sampling and Pressure, Left Heart, Percutaneous Approach (ICD-10-PCS; principal; 2017-10-07)
PROC: B2111ZZ Fluoroscopy of Multiple Coronary Arteries using Low Osmolar Contrast (ICD-10-PCS; 2017-10-07)
PROC: B2181ZZ Fluoroscopy of Left Internal Mammary Bypass Graft using Low Osmolar Contrast (ICD-10-PCS; 2017-10-07)
PROC: B2151ZZ Fluoroscopy of Left Heart using Low Osmolar Contrast (ICD-10-PCS; 2017-10-07)
DX: I21.4 Non-ST elevation (NSTEMI) myocardial infarction (principal); J18.9 Pneumonia, unspecified organism; I50.23 Acute on chronic systolic (congestive) heart failure; E11.22 Type 2 diabetes mellitus with diabetic chronic kidney disease; D69.6 Thrombocytopenia, unspecified; E11.65 Type 2 diabetes mellitus with hyperglycemia; N18.4 Chronic kidney disease, stage 4 (severe); N17.9 Acute kidney failure, unspecified; E87.1 Hypo-osmolality and hyponatremia; Q60.0 Renal agenesis, unilateral; I13.0 Hypertensive heart and chronic kidney disease with heart failure and stage 1 through stage 4 chronic kidney disease, or unspecified chronic kidney disease; N39.0 Urinary tract infection, site not specified; I21.A1 Myocardial infarction type 2; I25.10 Atherosclerotic heart disease of native coronary artery without angina pectoris; E86.0 Dehydration; Z95.1 Presence of aortocoronary bypass graft; D64.9 Anemia, unspecified; Z87.891 Personal history of nicotine dependence
CPT/HCPCS: 36140; 36415; 36600; 71045; 71046; 77002; 80048; 80053; 80061; 81001; 82550; 82553; 82805; 82948; 83605; 83690; 83735; 83880; 84100; 84484; 85025; 85610; 85730; 87040; 87070; 87086; 87205; 87400; 93005; 93306; 94640; 99284; C1769; J0456; J0696; J1644; J1940; J2001; J2250; J2270; J2405; J7030; J7050; Q9967